=== PATIENT | female | born 1950 | race Caucasian/White ===

== ENCOUNTER → 2017-09-03 | Outpatient (CLI) | payer OTHER, MEDICARE | LOC: CIMAGING 10:27 | DX: Z12.31 Encounter for screening mammogram for malignant neoplasm of breast (principal) ==

== ENCOUNTER → 2018-11-27 | Outpatient (CLI) | payer OTHER, MEDICARE | LOC: CIMAGING 07:42 | DX: Z12.31 Encounter for screening mammogram for malignant neoplasm of breast (principal) ==